=== PATIENT | male | born 1955 | race Caucasian/White ===

== ENCOUNTER 2023-03-23 14:17 | Outpatient (CLI) | payer MEDICARE, OTHER | END 2023-03-23 14:18 | disposition home or self-care (01) | LOC: CSHCP 14:17 | PROVIDERS: ATTEND Internal Medicine Cardiovascular Disease | DX: I35.0 Nonrheumatic aortic (valve) stenosis (principal) | CPT/HCPCS: 94060; 94726; 94729; 94760 ==